=== PATIENT | male | born 1965 | race Caucasian/White ===

== ENCOUNTER 2022-07-02 13:01 | Emergency (ER) | payer SELFPAY ==
--- NOTE | ~2022-07-02 | XR_ITS ---
EXAMINATION: XR FINGER, LEFT CLINICAL INFORMATION: Laceration from hedge clippers. COMPARISON: None TECHNIQUE: 3 views of the left index finger. FINDINGS: There is bandage material overlying the index finger. Bones have normal alignment in the wrist and hand. No acute fracture or subluxation. No radiopaque foreign body. Mild joint space narrowing and marginal osteophyte formation at multiple degenerated interphalangeal joints. Moderate osteoarthritis of the first carpometacarpal joint. XR/XR finger LT min 2V IMPRESSION: * No acute osseous injury or radiopaque foreign body. 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
[2022-07-02 13:20] VITALS: BP 136/70; PULSE 60; RESP 16; TEMP 36.6; O2SAT 96; BMI 27.9
[2022-07-02 16:19] VITALS: BP 136/81; PULSE 52; RESP 18; TEMP 37; O2SAT 98
--- NOTE | 2022-07-02 17:05 | ED.WOUNDLAC ---
HPI - Wound/Laceration General Chief Complaint: Wound/Laceration Stated Complaint: cut finger Time Seen by Provider: 07/02/22 16:59 Source: patient Mode of arrival: ambulatory History of Present Illness HPI narrative: 57-year-old male who presents with laceration with a weed whacker earlier this morning and he states he was having some difficulty getting it to stop bleeding and his tetanus is over 6 years ago. Related Data Allergies Allergy/AdvReac Type Severity Reaction Status Date / Time No Known Allergies Allergy Verified 07/02/22 13:20 Review of Systems Review of Systems: Pertinent positives and negatives as stated in HPI 10 point review of systems otherwise negative. PMFSH Past Medical History Source: nursing notes reviewed Social History Social History Advance Directives: Yes Advance Directives Information Provided: Yes Advance Directives on File: No Physical Exam Vital Signs: Vital Signs: Last Vital Signs Temp 98.6 F 07/02/22 16:19 Pulse 52 07/02/22 16:19 Resp 18 07/02/22 16:19 BP 136/81 07/02/22 16:19 Pulse Ox 98 07/02/22 16:19 O2 Del Method 07/02/22 16:19 BMI result Body Mass Index 27.9 VITAL SIGNS: Reviewed. GENERAL: Well developed, well nourished, in no acute distress. HEAD: Normocephalic/atraumatic EYES: PERRLA, EOMI EARS: Ext canals without abnormality OROPHARYNX: no oral lesions noted, posterior pharynx clear LUNGS: Normal breath sounds. SpO2<98> CARDIOVASCULAR: Regular rate and rhythm without noted murmurs ABDOMEN: Soft, non-tender, non-distended with bowel sounds. MUSCULOSKELETAL: No tenderness, deformities, or effusions noted on gross inspection. EXTREMITIES: No cyanosis, clubbing or edema; LEFT INDEX FINGER: Finger is hemostatic edges are approximated NEUROLOGIC: Alert and oriented x 4. Course Course Course Narrative: 57-year-old male with history and clinical presentation consistent laceration of finger tip and although hemostatic and approximated the more distal laceration will likely have too much tension to heal properly. Will close with sutures and discharged home in stable condition. Patient received Tdap at this time as well. Patient discharged home in stable condition. Procedures Laceration Laceration 1: Site: upper extremity Side (If applicable): left Size (cm): 2 Description: linear Depth: simple, single layer Local Anesthetic: lidocaine 2% Amount of anesthesia used (mL): 5 Skin layer closed with: nylon Size (cm): 4-0 Number of sutures: 3 Technique: simple, interrupted Discharge Plan Discharge Clinical Impression: Laceration Patient Disposition: Home, Self-Care Instructions: Finger Laceration (ED) Additional Instructions: 1. Return here or go to your primary care provider for removal of sutures in 5 days. 2. Recommend [id number] Tylenol/ibuprofen as needed for pain control. 3. In 24 hours you can gently cleanse with soap and water and apply bacitracin. Make sure the fingers always protected when handling potentially unsanitary items. Return to the ER for worsening symptoms or development of infection. Referrals: Skinny Crum MD [Primary Care Provider] -
[2022-07-02] MEDS: Diphth,Pertus(ACell),Tet Adult 0.5 ML SYRINGE IM (17:14)
[2022-07-02] MEDS: Lidocaine HCl 2 % MPF 5 ML VIAL SUBCUT (17:16)
== END 2022-07-02 18:00 | disposition home or self-care (01) ==
PROVIDERS: Emergency Provider Student in an Organized Health Care Education/Training Program; PCP Internal Medicine
DX: S61.211A Laceration without foreign body of left index finger without damage to nail, initial encounter (principal); W29.3XXA Contact with powered garden and outdoor hand tools and machinery, initial encounter; Y93.H2 Activity, gardening and landscaping; Y92.017 Garden or yard in single-family (private) house as the place of occurrence of the external cause; Y99.9 Unspecified external cause status
CPT/HCPCS: 12001; 73140; 90471; 90715; 99284